=== PATIENT | female | born 2005 | race Two or more races ===

== ENCOUNTER 2025-05-14 09:48 | Emergency (ER) | payer MEDICAID, SELFPAY ==
--- NOTE | 2025-05-14 11:02 | PC.NURSE ---
called pt back, no answer at this time
--- NOTE | 2025-05-14 11:06 | PD.EDADDENDU ---
Emergency Room Addendum Addendum Narrative: When I looked for the patient to start my evaluation, I was told the patient eloped. Balwinder Silva MD
--- NOTE | 2025-05-14 11:45 | PC.NURSE ---
called pt back, no answer at this time
--- NOTE | 2025-05-14 12:10 | PC.NURSE ---
CALLED PT BACK, NO ANSWER AT THIS TIME
== END 2025-05-14 12:11 | disposition left against medical advice (07) ==
PROVIDERS: Emergency Provider Emergency Medicine
DX: Z53.21 Procedure and treatment not carried out due to patient leaving prior to being seen by health care provider (principal)
CPT/HCPCS: 99281

== ENCOUNTER 2025-05-15 01:27 | Emergency (ER) | payer MEDICAID, SELFPAY ==
[2025-05-15 01:28] VITALS: BMI 36.3
[2025-05-15 02:53] VITALS: BP 130/90; PULSE 100; RESP 18; TEMP 36.8; O2SAT 95
--- NOTE | 2025-05-15 03:20 | XR_ITS ---
Examination: CT abdomen and pelvis without contrast. Coronal 3-D reconstructions. Sagittal 2-D reconstructions. Date and time of exam: May 15, 2025, 0433 hours INDICATIONS: Abdominal pain nausea vomiting beginning 3 days ago CTDI: vol (mGy): 5.80 DLP: (mGycm): 289 Technique: Axial images of the abdomen have been obtained, 3 mm slice thickness Intravenous contrast material has not been administered. Low dose protocols were performed. One or more of the following dose reduction techniques were used; automated exposure control, adjustment of the mA and/or KV according to patient size, use of iterative reconstruction technique. Findings: Diffuse fatty infiltration throughout the liver no focal liver or splenic lesions No gallstones No pancreatic or adrenal mass No renal or ureteral calculi, no hydronephrosis Tiny fat-containing umbilical hernia Aorta normal size Normal appendix 3 cm probable right ovarian cyst Contracted urinary bladder with urinary bladder wall thickening IMPRESSION: Consider pelvic sonography follow-up to confirm right ovarian cyst
--- NOTE | 2025-05-15 03:20 | PD.EDRME ---
Rapid Medical Screening Exam RME Arrival date/time: 05/15/25 01:27 This is a case of 20-year-old female who came into the emergency room due to abdominal pain nausea vomiting and headache for 2 days worsening of the symptoms this patient decided to sought consult here in the emergency room Chief Complaint: Nausea/Vomiting/Diarrhea Time Seen by Provider: 05/15/25 03:20 Vital signs: Vital Signs Temperature 98.3 F 05/15/25 02:53 Pulse Rate 100 05/15/25 02:53 Respiratory Rate 18 05/15/25 02:53 Blood Pressure 130/90 H 05/15/25 02:53 Pulse Oximetry (%) 95 05/15/25 02:53 Oxygen Delivery Method Room Air 05/15/25 02:53 Exam: Mild to moderate tenderness on the periumbilical area no guarding no rebound no rigidity Clinical Impression: Abdominal pain
[2025-05-15 03:50] LABS: Basophils # (Auto) 0.1 Thou/mm3 (0.0-0.2); Basophils % (Auto) 1 % (0-2.5); Eosinophils # (Auto) 0.0 Thou/mm3 (0.0-0.5); Eosinophils % (Auto) 0 % (0-10); Hematocrit 39.6 % (36.0-46.0); Hemoglobin 13.7 g/dL (12.0-16.0); Immature Granulocytes Auto 0.02 Thou/mm3 (0.00-0.00); Lymphocytes # (Auto) 1.1 Thou/mm3 (1.0-4.8); Lymphocytes % (Auto) 12 % (10-50); Mean Corpuscular HGB Conc 34.6 g/dl (31.0-37.0); Mean Corpuscular Hemoglobin 28.3 pg (25.0-35.0); Mean Corpuscular Volume 82 fL (80-100); Monocytes # (Auto) 0.6 Thou/mm3 (0.0-0.8); Monocytes % (Auto) 6 % (0-12); Neutrophils # (Auto) 7.3 Thou/mm3 (1.8-7.7); Neutrophils % (Auto) 81 % (37-80); Nucleated Red Blood Cell # 0.00 Thou/mm3 (0.00-0.00); Nucleated Red Blood Cell % 0 /100 WBC (0); Platelet Count 246 Thou/mm3 (140-440); RDW Standard Deviation 41.6 fL (36.4-46.3); Red Blood Count 4.84 Miln/mm3 (4.00-5.20); White Blood Count 9.0 Thou/mm3 (3.6-11.0)
[2025-05-15 04:13] LABS: Collection Type, Urine Clean Catch
[2025-05-15 04:16] LABS: HCG Qualitative,Urine Negative
[2025-05-15 04:19] LABS: Amorphous Crystals,Urine Present (Absent); Bilirubin,Urine 1+ (Negative); Blood,Urine Trace (Negative); Budding Yeast,Urine Present; Clarity,Urine Turbid (Clear/Hazy); Color,Urine Yellow (Lt Yel-Yel); Glucose, Urine Negative (Negative); Hyaline Casts,Urine < 1 /hpf (0-1); Ketones,Urine 2+ (Negative); Leukocyte Esterase,Urine Positive (Negative); Nitrite,Urine Negative (Negative); PH,Urine 6.5 (5.0-7.0); Protein,Urine 2+ (Neg - Trace); RBC,Urine 23 /hpf (0-3); Specific Gravity,Urine 1.034 (1.001-1.035); Squamous Epithelial Cell,Urine 59 /hpf (0-5); Urobilinogen,Urine 3.0 mg/dL (0.0-1.0); WBC,Urine 11 /hpf (0-5)
[2025-05-15 04:21] LABS: Alanine Aminotransferase < 7 U/L (10-49); Albumin, Serum 5.3 gm/dL (3.5-5.0); Albumin/Globulin Ratio 2.4 (1.2-2.2); Alkaline Phosphatase 57 U/L (46-116); Anion Gap 12 (7-16); Aspartate Amino Transferase 15 U/L (0-34); BUN/Creatinine Ratio 6 Ratio (12-20); Bilirubin,Total 2.4 mg/dL (0.3-1.2); Blood Urea Nitrogen < 5 mg/dL (9-23); Calcium 10.2 mg/dL (8.3-10.6); Calcium (Corrected) 10.2 mg/dL (8.5-10.1); Carbon Dioxide 25.1 mMol/L (20.0-31.0); Chloride 104 mMol/L (98-107); Creatinine (Component) 0.8 mg/dL (0.6-1.3); Estimated Creatinine Clearance 153.0 mL/min (>60); Globulin 2.2 gm/dL (2.3-3.5); Glucose 99 mg/dL (74-106); Lipase 27 U/L (12-53); Osmolality,Calculated 278 (275-295); Potassium 3.7 mMol/L (3.4-5.1); Sodium 141 mMol/L (136-145); Total Protein 7.5 gm/dL (5.7-8.2); eGFR > 60 See Note
[2025-05-15 07:47] VITALS: BP 133/88; PULSE 94; RESP 16; TEMP 37; O2SAT 98
[2025-05-15 08:36] VITALS: BP 131/91; PULSE 81; RESP 16; TEMP 36.8; O2SAT 99
[2025-05-15 08:37] VITALS: BP 133/91; PULSE 81; RESP 19; TEMP 36.8; O2SAT 99
--- NOTE | 2025-05-15 08:55 | PD.EDNV ---
Nausea/Vomit./Diarrhea-RME/HPI General Chief complaint: Nausea/Vomiting/Diarrhea Stated complaint: NV Time Seen by Provider: 05/15/25 03:20 Arrival date/time: 05/15/25 01:27 RME / HPI RME / HPI Narrative: 05/15/25 01:27 This is a case of 20-year-old female who came into the emergency room due to abdominal pain nausea vomiting and headache for 2 days worsening of the symptoms this patient decided to sought consult here in the emergency room DR. LINDSAY MAIN ED EVALUATION: 20-year-old female with no known past medical history presents to the Emergency Department accompanied by her mother for persistent vomiting for the past 2 days, with worsening symptoms last night. She reports associated epigastric abdominal pain rated 8?9/10, described as a constant aching discomfort. She denies diarrhea, fevers, chills, urinary symptoms, or recent travel. No blood in vomit reported. No known sick contacts or ingestion of spoiled food. Related Data Previous Rx's ?Medication ?Instructions ?Recorded ibuprofen 600 mg tablet 1 tab PO Q8HR PRN pain #30 tabs 04/20/15 acetaminophen 500 mg capsule 500 mg PO Q6H PRN fever or pain 10/10/19 #30 caps famotidine 20 mg tablet 20 mg PO BID #20 tabs 10/10/19 omeprazole 10 mg capsule,delayed 10 mg PO QDAY #14 caps 05/15/25 release Allergies Allergy/AdvReac Type Severity Reaction Status Date / Time No Known Allergies Allergy Unverified 05/15/25 08:56 Review of Systems Review of Systems Systems Reviewed: All systems reviewed, normal except as documented Past Medical History Social History SMOKING STATUS: Never smoker SUBSTANCE USE: does not use ALCOHOL: Never ED Exam Narrative Physical exam: GENERAL APPEARANCE: alert and oriented x 4, mildly ill-appearing, actively nauseated but in no acute distress VITALS: All vitals were reviewed and the pulse ox is 99% on room air, which is normal according to my interpretation. HEENT: Normocephalic, atraumatic; pupils equal, round, reactive to light; EOMI; mucous membranes pink, moist; oropharynx clear NECK: Supple LUNGS: CTABL; no wheezes, no rales, no rhonchi HEART: Regular rate, regular rhythm; normal S1, S2; no murmurs ABDOMEN: Mild epigastric tenderness; soft, non-distended; bowel sounds present; no rebound or guarding BACK: no CVA tenderness EXTREMITIES: atraumatic; no edema NEUROLOGIC: awake; alert and oriented x4; cranial nerves II-XII grossly intact; no focal sensory or motor deficits PSYCHIATRIC: appropriate mood and affect SKIN: warm, dry, normal color; no rashes Course Quality Measures none Orders Category Date Time Status Insert IV NOW Care 05/15/25 09:[address] abdomen pelvis wo con Stat Exams 05/15/25 03:20 Completed US abdomen limited Stat Exams 05/15/25 09:13 Completed CBC Stat Lab 05/15/25 03:25 Completed Comprehensive Metabolic Panel Stat Lab 05/15/25 03:25 Completed HCG Qualitative,Urine Stat Lab 05/15/25 03:53 Completed Lipase Stat Lab 05/15/25 03:25 Completed UA, C/S IF [Urinalysis, C/S if Indicated] Stat Lab 05/15/25 12:47 Ordered Urinalysis Stat Lab 05/15/25 03:53 Completed Ketorolac Inj [Toradol Inj] Med 05/15/25 08:53 Discontinued 15 mg IVP X1 ONE Lidocaine 2% Viscous [Xylocaine 2% Viscous] Med 05/15/25 12:22 Discontinued 15 ml PO X1 ONE Ondansetron Inj [Zofran Inj] Med 05/15/25 08:53 Discontinued 4 mg IVP X1 ONE Sodium Chloride 0.9% 1000 ml [Ns] 1,000 ml Med 05/15/25 08:53 Discontinued IV 999 mls/hr mg Hyd/Al Hyd/Giancarlo Susp [Maalox Susp] Med 05/15/25 12:22 Discontinued 30 ml PO X1 ONE Reevaluation(s) Reevaluation #1: Patient feeling better after medications here and able to drink water with no vomiting. Plan to discharge. Time: 13:16 Vital Signs Vital signs: Vital Signs Temperature 98.3 F 05/15/25 02:53 Pulse Rate 100 05/15/25 02:53 Respiratory Rate 18 05/15/25 02:53 Blood Pressure 130/90 H 05/15/25 02:53 Pulse Oximetry (%) 95 05/15/25 02:53 Oxygen Delivery Method Room Air 05/15/25 02:53 Nausea/Vomiting/Diarrhea MDM Narrative MDM Narrative:: I, Heather Stevens, lizeth scribing for and in the presence of Dr. Lindsay. Patient data External records reviewed:: [facility] previous records Clinical information provided by:: patient and parent Social determinants that could affect healthcare access:: none Patient has the following chronic illnesses:: Denies any PMHx, surgeries, daily medications, or known allergies. How is presenting disease/condition affected by chronic disease/condition?: no chronic disease Evaluation data The following diagnostics were reviewed and interpreted by me:: lab results and radiology exam(s) Lab and/or radiology exams considered but not ordered:: none Interpretation Summary: Procedure(s): CT abdomen pelvis wo con Accession Number(s): [id number] cc: Epifanio Walker MD; Drew Lee MD; Sree Chopra~ Examination: CT abdomen and pelvis without contrast. Coronal 3-D reconstructions. Sagittal 2-D reconstructions. Date and time of exam: May 15, 2025, 0433 hours INDICATIONS: Abdominal pain nausea vomiting beginning 3 days ago CTDI: vol (mGy): 5.80 DLP: (mGycm): 289 Technique: Axial images of the abdomen have been obtained, 3 mm slice thickness Intravenous contrast material has not been administered. Low dose protocols were performed. One or more of the following dose reduction techniques were used; automated exposure control, adjustment of the mA and/or KV according to patient size, use of iterative reconstruction technique. Findings: Diffuse fatty infiltration throughout the liver no focal liver or splenic lesions No gallstones No pancreatic or adrenal mass No renal or ureteral calculi, no hydronephrosis Tiny fat-containing umbilical hernia Aorta normal size Normal appendix 3 cm probable right ovarian cyst Contracted urinary bladder with urinary bladder wall thickening IMPRESSION: Consider pelvic sonography follow-up to confirm right ovarian cyst Dictated By: Drew Lee MD Medications / Prescriptions Medications / Prescriptions considered but not ordered:: none Medication administrations:: Medication Administration History Discontinued Medications Al Hydrox/Mg Hydrox/Simethicone (Mg Hyd/Al Hyd/Giancarlo (Maalox Reg) Susp 30 Ml Udc) 30 ml PO X1 ONE Stop: 05/15/25 12:23 Last Admin: 05/15/25 12:39 Dose: 30 ml Documented By: NING Sodium Chloride (Ns) 1,000 mls @ 999 mls/hr IV .Q1H1M ONE Stop: 05/15/25 09:53 Last Infusion: 05/15/25 10:30 Dose: Infused Documented By: Admin: 05/15/25 09:27 Dose: 999 mls/hr Documented By: NING Ketorolac Tromethamine (Ketorolac Inj 30 Mg/Ml Vial) 15 mg IVP X1 ONE Stop: 05/15/25 08:54 Last Admin: 05/15/25 09:18 Dose: 15 mg Documented By: NING Lidocaine HCl (Lidocaine Viscous 2% 15 Ml Udc) 15 ml PO X1 ONE Stop: 05/15/25 12:23 Last Admin: 05/15/25 12:39 Dose: 15 ml Documented By: NING Ondansetron HCl (Ondansetron Inj 2 Mg/Ml Inj 2 Ml) 4 mg IVP X1 ONE Stop: 05/15/25 08:54 Last Admin: 05/15/25 09:17 Dose: 4 mg Documented By: NING see above Consultations Consultation(s) initiated? (list below): No Diagnosis Nausea Differential Diagnosis: other (Gastritis, viral gastroenteritis, and pancreatitis.) Most likely diagnosis given after review of the tests above:: Gastritis Admission Indicated Admission indicated?: not indicated Admission Request Was there a request for admission?: No Disposition Plan Disposition Plan: Discharge Discharge Attestation Discharge Attestation: The patient and all family members were given an opportunity to ask questions and understood the discharge instructions. Discharge instructions specifically effects, indications for sooner follow up or return to the emergency department, and the expected course of current diagnosis. Patient condition: Stable Discharge Plan Plan Patient Disposition: HOME (Self Care) Prescriptions/Referrals Prescriptions/Med Rec: New omeprazole 10 mg capsule,delayed release(DR/EC) 10 mg PO QDAY Qty: 14 0RF No Action ibuprofen 600 MG tablet 1 tab PO Q8HR PRN (Reason: pain) Qty: 30 0RF famotidine 20 mg tablet 20 mg PO BID Qty: 20 0RF acetaminophen 500 mg capsule 500 mg PO Q6H PRN (Reason: fever or pain) Qty: 30 0RF Referrals: Epifanio Walker MD [Primary Care Provider, Family Practice] - In 1 week Problem List Clinical Impression: Gastritis Patient/Caregiver Discharge Instructions Education Materials: ED Gastritis (Adult) Print Language: Cymraes Stand Alone Forms: [employer] Award Info., Patient Portal Info Letter
--- NOTE | 2025-05-15 09:13 | XR_ITS ---
Examination: Abdomen sonogram, Limited Date and time of exam: May 15, 2025, 0930 hours INDICATIONS: Elevated total bilirubin on laboratory examination May 15, 2025 Technique: Real-time gardner scale transabdominal sonographic images of the upper abdomen obtained. Findings: Gallbladder sludge, negative for cholelithiasis, negative for cholecystitis Normal common bile duct 0.2 cm Pancreatic head 1.7 cm Liver 13.7 cm fatty infiltration no focal liver lesions Normal hepatopetal portal venous flow Patent IVC IMPRESSION: Gallbladder sludge Negative for cholelithiasis, negative for cholecystitis
[2025-05-15] MEDS: ONDANSETRON INJ 2 MG/ML INJ 2 ML 4 MG IVP (09:17)
[2025-05-15] MEDS: KETOROLAC INJ 30 MG/ML VIAL 15 MG IVP (09:18)
[2025-05-15] MEDS: SODIUM CHLORIDE 0.9% 1000 ML 1,000 ML 999 ML IV (09:27)
[2025-05-15 10:35] VITALS: BP 105/55; PULSE 65; RESP 18; TEMP 37.1; O2SAT 95
[2025-05-15] MEDS: LIDOCAINE VISCOUS 2% 15 ML UDC PO (12:39)
[2025-05-15] MEDS: MG HYD/AL HYD/SIME (Maalox Reg) SUSP 30 ML UDC PO (12:39)
[2025-05-15 12:41] VITALS: BP 139/102; PULSE 124; RESP 23; TEMP 36.8; O2SAT 98
[2025-05-15 14:14] LABS: Collection Type, Urine Clean Catch
[2025-05-15 14:26] LABS: Bilirubin,Urine Negative (Negative); Blood,Urine Negative (Negative); Clarity,Urine Clear (Clear/Hazy); Color,Urine Yellow (Lt Yel-Yel); Culture Indicated,Urine Not Indicated; Glucose, Urine Negative (Negative); Ketones,Urine 4+ (Negative); Leukocyte Esterase,Urine Negative (Negative); Nitrite,Urine Negative (Negative); PH,Urine 6.5 (5.0-7.0); Protein,Urine 1+ (Neg - Trace); RBC,Urine 1 /hpf (0-3); Specific Gravity,Urine 1.035 (1.001-1.035); Squamous Epithelial Cell,Urine 1 /hpf (0-5); Urobilinogen,Urine 3.0 mg/dL (0.0-1.0); WBC,Urine 1 /hpf (0-5)
== END 2025-05-15 13:36 | disposition home or self-care (01) ==
PROVIDERS: Nurse Practitioner Family; Emergency Provider Emergency Medicine; PCP Family Medicine
DX: K29.70 Gastritis, unspecified, without bleeding (principal)
CPT/HCPCS: 36415; 74176; 76705; 80053; 81001; 81025; 83690; 85025; 96361; 96374; 96375; 99284; J1885; J2405; J3490; J7030; A9270